=== PATIENT | male | born 1980 | race Caucasian/White ===

== ENCOUNTER 2019-10-21 04:51 | Emergency (ER) | payer MEDICAID ==
[~2019-10-21] VITALS: Ht 180.3 cm; Wt 95.3 kg
[2019-10-21 05:00] VITALS: BP 172/105; Ht 180.3 cm; Wt 95.3 kg
== END 2019-10-21 06:17 | disposition home or self-care (01) ==
LOC: ED 04:51
DX: S83.91XA Sprain of unspecified site of right knee, initial encounter (principal); W11.XXXA Fall on and from ladder, initial encounter; Y93.89 Activity, other specified; Y92.89 Other specified places as the place of occurrence of the external cause; Y99.8 Other external cause status
CPT/HCPCS: Q0092